=== PATIENT | male | born 1965 | race Caucasian/White ===

== ENCOUNTER 2021-04-05 09:32 | Emergency (ER) | payer MEDICAID ==
[~2021-04-05] VITALS: Ht 175.3 cm; Wt 86.4 kg
[~2021-04-05 09:32] MED LIST: ALBU6.7H9 INH; FENOFIBRATE; FISHOIL; HYDR-3965 PO; LISI20TA28 PO; METF500T PO; MULT-620 PO; OXYC-145 PO; VIT C
[2021-04-05 09:51] VITALS: BP 143/65
[2021-04-05] MEDS ORDERED: ondansetron/PF 4mg/2ml inj IV ONE (10:10)
[2021-04-05] MEDS ORDERED: acetaminophen 325mg tablet PO ONE (10:10)
[2021-04-05] MEDS ORDERED: normal saline 1000ML IV soln IVB ONE (10:10)
[2021-04-05 10:55] LABS: BASOPHILS # (AUTO) 0.1 X10'3 (0-0.2); BASOPHILS % (AUTO) 0.2 % (0-1); EOSINOPHILS % (AUTO) 0.1 % (0-6); HEMATOCRIT 42.5 % (42.0-52.0); HEMOGLOBIN 14.7 g/dl (14.0-17.9); LYMPHOCYTES # (AUTO) 1.8 X10'3 (1.1-4.8); LYMPHOCYTES % (AUTO) 6.7 % (21-51); MEAN CORPUSCULAR HEMOGLOBIN 31.5 PG (27.0-31.0); MEAN CORPUSCULAR HGB CONC 34.5 g/dL (33.0-36.5); MEAN CORPUSCULAR VOLUME 91.3 FL (78-98); MEAN PLATELET VOLUME 8.2 FL (7.4-10.4); MONOCYTES # (AUTO) 2.3 X10'3 (0-0.9); MONOCYTES % (AUTO) 8.5 % (2-12); NEUTROPHILS # (AUTO) 22.7 X10'3 (1.8-7.7); NEUTROPHILS % (AUTO) 84.5 % (42-75); PLATELET COUNT 255 X10'3 (140-440); RED BLOOD COUNT 4.66 X10'6 (4.70-6.10); RED CELL DISTRIBUTION WIDTH 12.6 % (11.5-14.5)
[2021-04-05 11:01] LABS: WHITE BLOOD COUNT 26.8 X10'3 (4.5-11.0)
[2021-04-05 11:03] LABS: ALANINE AMINOTRANSFERASE 27 U/L (12-78); ALBUMIN 3.7 G/DL (3.4-5.0); ALBUMIN/GLOBULIN RATIO 0.9 (1.1-1.5); ALKALINE PHOSPHATASE 67 IU/L (46-116); ANION GAP 12 (8-16); ASPARTATE AMINO TRANSFERASE 17 U/L (10-37); BILIRUBIN,TOTAL 0.8 MG/DL (0.1-1.0); BLOOD UREA NITROGEN 10 MG/DL (7-18); BUN/CREATININE RATIO 8.9 (5.4-32.0); CALCIUM 8.9 MG/DL (8.5-10.1); CHLORIDE 97 MMOL/L (99-107); CREATININE 1.12 MG/DL (0.60-1.10); GLUCOSE 235 MG/DL (70-104); POTASSIUM 3.9 MMOL/L (3.5-5.1); SODIUM 132 MMOL/L (135-145); TOTAL CARBON DIOXIDE 22.6 MMOL/L (24-32); TOTAL PROTEIN 7.7 G/DL (6.4-8.2); eGFR 67 ML/MIN
[2021-04-05] MEDS ORDERED: azithromycin/NS 500mg/250ml 250 ML IV ONE (11:20)
[2021-04-05] MEDS ORDERED: normal saline 1000ML IV soln IV ONE (11:20)
[2021-04-05] MEDS ORDERED: CefTRIAXone 2gm/D5W 50ml BAG 50 ML IV ONE (11:20)
[2021-04-05 11:46] LABS: TOTAL CELLS COUNTED 200
[2021-04-05 11:48] LABS: PLATELET ESTIMATE NORMAL; STOMATOCYTES FFEW
[2021-04-05] MEDS ORDERED: iohexol 350MG/ML 100ml bottle IV ONE (12:13)
[2021-04-05] MEDS ORDERED: DOXY100C77 PO (14:18)
[2021-04-05] MEDS ORDERED: CEPH250T PO (14:18)
[2021-04-05] MEDS ORDERED: ALBU6.7H9 INH (14:18)
[2021-04-05] MEDS ORDERED: PRED20TA PO (14:18)
[2021-04-05 14:32] LABS: CLARITY,URINE Clear (Clear); COLOR,URINE YELLOW (Yellow); UA COLLECTION TYPE CLN CATCH MIDSTREAM
[2021-04-05 14:33] LABS: PROTEIN,URINE NEGATIVE (Neg)
[2021-04-05 14:34] LABS: GLUCOSE, URINE 100 mg/dl (Neg); KETONES,URINE NEGATIVE (Neg); LEUKOCYTE ESTERASE ,URINE NEGATIVE (Neg); NITRITES, URINE NEGATIVE (Neg); OCCULT BLOOD,URINE NEGATIVE (Neg); UROBILINOGEN,URINE 0.2 E.U/dL (0.2-1.0)
[2021-04-05 14:37] LABS: URINE AMPHETAMINE SCREEN NEGATIVE (Neg); URINE BARBITUATE SCREEN NEGATIVE (Neg); URINE BENZODIAZEPINES SCREEN NEGATIVE (Neg); URINE CANNABINOID SCREEN POSITIVE (Neg); URINE COCAINE SCREEN NEGATIVE (Neg); URINE METHADONE SCREEN NEGATIVE (Neg); URINE OPIATE SCREEN POSITIVE (Neg); URINE PHENCYCLIDINE SCREEN NEGATIVE (Neg)
[2021-04-05] MEDS ORDERED: HYDROcodone/acetaminophen 10/325mg tab PO ONE (15:15)
== END 2021-04-05 15:27 | disposition home or self-care (01) ==
LOC: ER 09:33
DX: J18.9 Pneumonia, unspecified organism (principal); Z20.822 Contact with and (suspected) exposure to COVID-19; R19.7 Diarrhea, unspecified; R53.1 Weakness; R05 Cough; R07.89 Other chest pain; R50.9 Fever, unspecified; I10 Essential (primary) hypertension; E11.9 Type 2 diabetes mellitus without complications; Z98.890 Other specified postprocedural states; Z79.2 Long term (current) use of antibiotics; Z79.899 Other long term (current) drug therapy
CPT/HCPCS: 36415; 71045; 71275; 80053; 80305; 81003; 83605; 84145; 85007; 85025; 87040; 87635; 96361; 96365; 96366; 96368; 96375; 99291; C9803; J0456; J0696; J2405; J7030; Q9967